=== PATIENT | female | born 1985 | race Caucasian/White ===

== ENCOUNTER 2018-10-14 10:29 | Day surgery (SDC) | payer OTHER ==
[2018-10-14] VITALS (14 sets, daily range): BP systolic 94–116; BP diastolic 46–66; PULSE 64–98; RESP 10–24; Ht 160 cm; Wt 55.3 kg
[~2018-10-14] VITALS: Ht 160 cm; Wt 55.3 kg
[~2018-10-14 10:29] MED LIST: DESFLURANE 15 MIN ONE
--- NOTE | 2018-10-14 11:57 | SIPON ---
Date/Time of Note Date/Time of Note DATE: 10/14/18 TIME: 11:56 Operative Report Preoperative Diagnosis dns, sinusitis Postoperative Diagnosis same Operation/Procedure Performed stm, ess Surgeon see signature line funeral home assistant na Anesthesia: general Estimated blood loss: 10 - 50 ml's Transfusion Required none Specimen septal bone Grafts/Implants none Complications none CARLY FOFANA MD Oct 14, 2018 11:57
--- NOTE | 2018-10-14 11:57 | HPN ---
Date/Time of Note Date/Time of Note DATE: 10/14/18 TIME: 11:57 Interval H&P Admission Note Pt. seen H&P reviewed: No system changes CARLY FOFANA MD Oct 14, 2018 11:57
[2018-10-14] MEDS ORDERED: OXYMETAZOLINE 0.05% 15 ML NAS SPRAY NASAL ONE (12:03)
[2018-10-14] MEDS ORDERED: LIDOCAINE 1%/EPI (1:100,000) (MDV) 20 ML ONE (12:03)
--- NOTE | 2018-10-14 12:11 | PREAC ---
Date/Time of Note Date/Time of Note DATE: 10/14/18 TIME: 12:05 Anesthesia Eval and Record Evaluation Time Pre-Procedure Interview DATE: 10/14/18 TIME: 12:05 Age 33 Sex female NPO: 8 hrs Preoperative diagnosis chronic pansinusitis deviated septum Planned procedure B/L endoscopic sinus surgery, septoplasty, B/L turbinate modification Past Medical History Past Medical History: None Surgery & Anesthesia Issues No known issue Meds Anticoagulation: No Beta Zeenat within 24 hr: No Reason Beta Zeenat not given: Pt. not on B-Zeenat No Active Prescriptions or Reported Meds Meds reviewed: Yes Allergies Coded Allergies: No Known Allergies (Verified Allergy, Unknown, 10/14/18) Allergies Reviewed: Yes Labs/Studies Labs Reviewed: Reviewed by anesthesiologist test: Negative (n/a) Studies: CXR (n/a) Pre-procedure Exam Last vitals Vital Signs Date Temp Pulse Resp B/P (MAP) Pulse Ox O2 O2 Flow FiO2 Time Delivery Rate 10/14/18 96.5 64 18 94/48 (63) 100 Room Air 11:32 Airway: Adequate mouth opening Mallampati: Mallampati I Teeth: Normal Lung: Normal Heart: Normal ASA Physical Status ASA physical status: 1 Emergency: None Planned Anesthetic General/MAC: ETT Planned Pain Management Parenteral pain med (pt has some rash on chest from yesterday , denied any new exposure to anything) Pre-operative Attestations Prior to commencing anesthesia and surgery, the patient was re-evaluated, there was verification of: *The patient's identity *The results of appropriate recent lab work and preoperative vital signs *The above evaluation not changing prior to induction *Anesthetic plan, risk benefits, alternative and complications discussed with patient/family; questions answered; patient/family understands, accepts and wishes to proceed. BENNY MCMAHON MD Oct 14, 2018 12:11
[2018-10-14] MEDS ORDERED: MIDAZOLAM 1 MG/ML 2 ML INJ ONE (12:14)
[2018-10-14] MEDS ORDERED: ONDANSETRON 4 MG INJ ONE (12:23)
[2018-10-14] MEDS ORDERED: METOCLOPRAMIDE 10 MG INJ ONE (12:23)
[2018-10-14] MEDS ORDERED: PROPOFOL 20 ML ONE (12:23)
[2018-10-14] MEDS ORDERED: ROCURONIUM 50 MG INJ ONE (12:23)
[2018-10-14] MEDS ORDERED: DEXAMETHASONE 4 MG/ML 5 ML INJ ONE (12:24)
[2018-10-14] MEDS ORDERED: DIPHENHYDRAMINE 50 MG INJ ONE (12:24)
[2018-10-14] MEDS ORDERED: DIPHENHYDRAMINE 50 MG INJ IV PRN (12:30)
[2018-10-14] MEDS ORDERED: MEPERIDINE 25 MG INJ IV PRN (12:30)
[2018-10-14] MEDS ORDERED: ONDANSETRON 4 MG INJ IV PRN (12:30)
[2018-10-14] MEDS ORDERED: FENTAnyl 50 MCG/ML VIAL IV PRN ×2 (12:30)
[2018-10-14] MEDS ORDERED: OXYCODONE/ACETAMINOPHEN (5/325) TAB PO PRN ×2 (12:30)
[2018-10-14] MEDS ORDERED: HYDROmorphONE 1 MG/5 ML IV SYRINGE IV PRN ×3 (12:30)
[2018-10-14] MEDS: FENTAnyl 50 MCG/ML VIAL IV PRN ×2 (14:33→15:04)
--- NOTE | 2018-10-14 19:59 | OPR ---
DATE OF OPERATION: 10/14/2018 PREOPERATIVE DIAGNOSES: 1. Deviated septum. 2. Turbinate hypertrophy. 3. Chronic sinusitis. POSTOPERATIVE DIAGNOSES: 1. Deviated septum. 2. Turbinate hypertrophy. 3. Chronic sinusitis. PROCEDURES: Septoplasty, bilateral inferior turbinate modification. SURGEON: Carly Gunter MD ANESTHESIA: General anesthesia. COMPLICATIONS: None. ESTIMATED BLOOD LOSS: Minimal. DESCRIPTION OF THE PROCEDURE: After consent was obtained, the patient was prepped and draped in augustina dard fashion after a sufficient period of time had elapsed, nasal endoscope was introduced to t he right nasal cavity. I was easily able to cannulate the front nasal duct and dilated to a pressure of 12 bars on the right side. I was also able to cannulate front nasal duct and dilate it with pres sure of 12 bars. When I did this, a large amount of mucoid secretions came out. The sinus was then irrigated. The maxillary sinus on the left was easily cannulated and dilated to pressure of 12 bars. On the right here too was easily cannulated to pressure of 12 bars. When this occurred, large amou nt of mucoid secretions came out and I was able to irrigate the sinuses clear. Standard anterior and posterior ethmoidectomies were performed using the shaver. The maxillary sinus ostia were also easi ly cannulated bilaterally. Propel stents were used bilaterally within the ethmoid cavity and on the right frontal. At this point, left-sided hemitransfixion incision was made. Bilateral mucoperichond rial flaps were elevated. Osseocartilaginous junction was disarticulated. High cuts made in the per pendicular plate of the ethmoid. Posterior bony deflection was removed using a Delores. A small p ortion of cartilage was shaved. This did allow the septum to come back into midline and the hemitran sfixion incision was closed using multiple chromic sutures. Whipstitch composed of plain gut was use d to oppose the flaps. At this point, bilateral lateral medial osteotomies were created. Nasal bone s were brought back into the midline after open roof deformity was created. All incisions were then closed using multiple chromic sutures. The inferior turbinates were submucosally reduced, infracture d and outfractured using a Torre. Telfa packs were placed bilaterally. Standard rhinoplastic spli nt was applied. The patient was awakened and transferred to recovery room in stable condition. Dictated By: CARLY RICHARDS/WILY Conf#: [id number] DID#: [id number]
--- NOTE | 2018-10-15 07:43 | PAC ---
Date/Time of Note Date/Time of Note DATE: 10/15/18 TIME: 07:42 Post-Anesthesia Notes Post-Anesthesia Note Last documented vital signs Vital Signs Date Temp Pulse Resp B/P (MAP) Pulse Ox O2 O2 Flow FiO2 Time Delivery Rate 10/14/18 98 68 12 98/54 (69) 93 Room Air 15:16 10/14/18 8.0 14:21 10/14/18 98.0 14:16 Activity: WNL Respiratory function: WNL Cardiovascular function: WNL Mental status: Baseline Pain reasonably controlled: Yes Hydration appropriate: Yes Nausea/Vomiting absent: No BENNY MCMAHON MD Oct 15, 2018 07:43
== END 2018-10-14 16:22 | disposition home or self-care (01) ==
LOC: SDS 10:29
PROVIDERS: ATTEND Otolaryngology
DX: J34.2 Deviated nasal septum (principal); J34.3 Hypertrophy of nasal turbinates; J32.9 Chronic sinusitis, unspecified
CPT/HCPCS: 30140; 30520; 84703; 88300; 88304; J1100; J1200; J2250; J2405; J2765; J3010